=== PATIENT | female | born 1945 | race Caucasian/White ===

== ENCOUNTER 2018-03-10 10:50 | Emergency (ER) | payer MEDICARE ==
[~2018-03-10] VITALS: Ht 162.5 cm; Wt 59.0 kg
[~2018-03-10 10:50] MED LIST: ANTIVERT25 MG PO; ESTRADERM0.05 MG/24 PO; HYDROCODONE BIT1 T11 PO; PROVERA2.5 MG PO
[2018-03-10 11:20] LABS: BILIRUBIN NEGATIVE (NEGATIVE); BLOOD 3+ (NEGATIVE); CLARITY SL CLOUDY (CLEAR); COLOR YELLOW (YELLOW); GLUCOSE NEGATIVE (NEGATIVE); KETONE NEGATIVE (NEGATIVE); LEUKO ESTERASE 1+ (NEGATIVE); NITRITE NEGATIVE (NEGATIVE); SPECIFIC GRAVITY 1.025 (1.005-1.030)
[2018-03-10 11:29] LABS: BACTERIA 2+; RBC 51-100 rbc/hpf (0-2)
[2018-03-10 12:19] LABS: BASO % 0.7 % (0.0-1.0); EOS % 0.5 % (1.0-4.0); HEMOGLOBIN 13.7 g/dl (12.0-16.0); LYMPH % 16.9 % (27.0-41.0); MEAN CELL VOLUME 90.1 fl (81.0-99.0); MEAN CORPUSCULAR HGB 30.1 pg (27.0-31.0); MEAN CORPUSCULAR HGB CONC 33.4 g/dl (33.0-37.0); MEAN PLATELET VOLUME 9.1 fl (9.6-12.3); MONO # 0.8 10*3/uL (0.1-1.0); MONO % 13.7 % (3.0-9.0); NEUT # 3.8 10*3/uL (2.3-7.9); PLATELET COUNT AUTOMATED 240 10*3/uL (130-400); RED BLOOD COUNT 4.55 10*6/uL (4.10-5.10); RED CELL DISTRI WIDTH 12.9 % (0-14.5); WHITE BLOOD COUNT 5.6 10*3/uL (4.8-10.8)
[2018-03-10 12:43] LABS: ALBUMIN 3.8 gm/dl (3.1-4.5); ALKALINE PHOSPHATASE 98 U/L (45-117); BUN 11 mg/dl (7-24); CHLORIDE 107 mmol/L (98-107); CREATININE 0.96 mg/dL (0.55-1.02); SGOT/AST 30 IU/L (3-35); SGPT/ALT 32 U/L (12-78); SODIUM 139 mmol/L (136-145); TOTAL PROTEIN 7.2 gm/dL (6.4-8.2)
[2018-03-10] MEDS ORDERED: MACROBID100 M1 PO (13:10)
== END 2018-03-10 13:14 | disposition home or self-care (01) ==
LOC: ED 10:50
PROVIDERS: Emergency Medicine; Nurse Practitioner Family
DX: N39.0 Urinary tract infection, site not specified (principal); R51 Headache; Z79.899 Other long term (current) drug therapy

== ENCOUNTER 2018-03-12 08:38 | Emergency (ER) | payer MEDICARE ==
[~2018-03-12] VITALS: Ht 162.5 cm; Wt 59.0 kg
[~2018-03-12 08:38] MED LIST changes: +MACROBID100 M1 PO
[2018-03-12] MEDS ORDERED: NITROFURANTOIN PO (08:48)
[2018-03-12] MEDS ORDERED: PREDNISONE10 MG PO (09:09)
[2018-03-12] MEDS ORDERED: CLARITIN10 MG PO (09:09)
[2018-03-12] MEDS ORDERED: FLONASE ALLERG9.9 ML NAS (09:09)
[2018-03-12] MEDS ORDERED: Fioricet 325 MG1 TAB PO (09:10)
== END 2018-03-12 09:43 | disposition home or self-care (01) ==
LOC: ED 08:38
DX: R51 Headache (principal); H92.02 Otalgia, left ear; Z98.890 Other specified postprocedural states; Z79.899 Other long term (current) drug therapy

== ENCOUNTER 2018-03-26 10:31 | Emergency (ER) | payer MEDICARE ==
[~2018-03-26] VITALS: Ht 162.5 cm; Wt 59.0 kg
--- NOTE | ~2018-03-26 | EKG ---
[place], [place] ELECTROCARDIOGRAM REPORT NAME: IRIS KAPOOR UNIT #: [id number] ROOM: DOCTOR: MATTEOANY DRAFT REPORT BIRTHDATE: [birth year] [facility] Test Date: 2018-03-26 Test Time: 11:03:39 Pat Name: IRIS KAPOOR Department: Room: Gender: F Hearing Care Practitioner: PINKY PAYTON : 1945 Requested By: FAB ANDREWS Order Number: [id number] Reading MD: William Freeman MD Measurements Intervals [place] Rate: 82 P: 50 TN: 149 QRS: 33 QRSD: 94 T: QT: 513 QTc: 600 Interpretive Statements Sinus rhythm Abnormal inferior Q waves Borderline repolarization abnormality Prolonged QT interval Electronically Signed On 03-28-2018 8:20:37 PDT by William Freeman MD CM:EKGRPT:ELECTROCARDIOGRAM REPORT [id number] FAB DOLL DRAFT REPORT FAB ANDREWS MD
[~2018-03-26 10:31] MED LIST changes: +CLARITIN10 MG PO; +FLONASE ALLERG9.9 ML NAS; +Fioricet 325 MG1 TAB PO; +NITROFURANTOIN PO; +PREDNISONE10 MG PO
[2018-03-26 11:02] LABS: BASO # 0.1 10*3/uL (0.0-0.1); BASO % 0.8 % (0.0-1.0); EOS # 0.2 10*3/uL (0.0-0.4); EOS % 2.2 % (1.0-4.0); HEMATOCRIT 41.1 % (37.0-47.0); HEMOGLOBIN 13.3 g/dl (12.0-16.0); LYMPH # 1.8 10*3/uL (1.3-4.4); LYMPH % 20.5 % (27.0-41.0); MEAN CELL VOLUME 93.8 fl (81.0-99.0); MEAN CORPUSCULAR HGB 30.4 pg (27.0-31.0); MEAN CORPUSCULAR HGB CONC 32.4 g/dl (33.0-37.0); MEAN PLATELET VOLUME 8.8 fl (9.6-12.3); MONO # 0.7 10*3/uL (0.1-1.0); MONO % 7.8 % (3.0-9.0); NEUT # 6.1 10*3/uL (2.3-7.9); NEUT % 68.4 % (47.0-73.0); PLATELET COUNT AUTOMATED 372 10*3/uL (130-400); RED BLOOD COUNT 4.38 10*6/uL (4.10-5.10); RED CELL DISTRI WIDTH 13.4 % (0-14.5); WHITE BLOOD COUNT 8.9 10*3/uL (4.8-10.8)
[2018-03-26 11:18] LABS: ALBUMIN 3.5 gm/dl (3.1-4.5); ALKALINE PHOSPHATASE 93 U/L (45-117); BUN 17 mg/dl (7-24); CHLORIDE 108 mmol/L (98-107); CREATININE 0.89 mg/dL (0.55-1.02); POTASSIUM 4.6 mmol/L (3.5-5.1); SGOT/AST 14 IU/L (3-35); SGPT/ALT 27 U/L (12-78); SODIUM 141 mmol/L (136-145); TOTAL PROTEIN 7.3 gm/dL (6.4-8.2)
[2018-03-26 11:20] LABS: TROPONIN I < 0.015 ng/ml (<0.045)
== END 2018-03-26 12:00 | disposition short-term general hospital (02) ==
LOC: ED 10:31
PROVIDERS: Emergency Medicine
DX: R53.1 Weakness (principal); R47.81 Slurred speech; R20.0 Anesthesia of skin; R51 Headache; Z79.899 Other long term (current) drug therapy

== ENCOUNTER → 2018-05-04 | Outpatient (CLI) | payer MEDICARE | END | disposition home or self-care (01) | LOC: US 15:58 | DX: E05.90 Thyrotoxicosis, unspecified without thyrotoxic crisis or storm (principal) ==

== ENCOUNTER → 2018-11-21 | Outpatient (CLI) | payer MEDICARE ==
[~2018-11-21] MED LIST changes: +IBUPROFEN600 MG PO
== END | disposition home or self-care (01) ==
LOC: US 13:59
DX: M79.662 Pain in left lower leg (principal); R22.42 Localized swelling, mass and lump, left lower limb

== ENCOUNTER 2021-04-21 14:56 | Inpatient (IN) | payer MEDICARE ==
[~2021-04-21] VITALS: Wt 61.2 kg
[2021-04-21 15:28] VITALS: BP 181/74
[2021-04-21 18:44] LABS: BILIRUBIN Negative (Negative); BLOOD 2+ (Negative); CLARITY Clear (Clear); COLOR Yellow (Yellow); GLUCOSE Negative (Negative); KETONE Negative (Negative); LEUKO ESTERASE Negative (Negative); NITRITE Negative (Negative); SPECIFIC GRAVITY 1.015 (1.001-1.030); UROBILINOGEN 0.2 E.U./dl (0.0-1.0)
[2021-04-21 18:52] LABS: BACTERIA 1+; MUCOUS 1+; RBC 16-20 rbc/hpf (0-2)
[2021-04-21 18:53] LABS: BASO # 0.1 10*3/uL (0.0-0.1); EOS # 0.1 10*3/uL (0.0-0.4); EOS % 1.5 % (1.0-4.0); HEMATOCRIT 44.5 % (37.0-47.0); LYMPH # 2.9 10*3/uL (1.3-4.4); LYMPH % 30.2 % (27.0-41.0); MEAN CELL VOLUME 93.1 fl (81.0-99.0); MEAN CORPUSCULAR HGB 30.1 pg (27.0-31.0); MEAN CORPUSCULAR HGB CONC 32.4 g/dl (33.0-37.0); MEAN PLATELET VOLUME 9.1 fl (9.6-12.3); MONO # 0.7 10*3/uL (0.1-1.0); NEUT # 5.7 10*3/uL (2.3-7.9); NEUT % 60.1 % (47.0-73.0); PLATELET COUNT AUTOMATED 369 10*3/uL (130-400); RED BLOOD COUNT 4.78 10*6/uL (4.10-5.10); RED CELL DISTRI WIDTH 13.2 % (0-14.5); WHITE BLOOD COUNT 9.4 10*3/uL (4.8-10.8)
[2021-04-21 18:56] VITALS: BP 190/80
[2021-04-21 19:08] LABS: ALBUMIN 4.2 gm/dl (3.1-4.5); ALKALINE PHOSPHATASE 78 U/L (45-117); BUN 12 mg/dl (7-24); CHLORIDE 107 mmol/L (98-107); CREATININE 0.88 mg/dL (0.55-1.02); LIPASE 115 U/L (73-393); POTASSIUM 3.7 mmol/L (3.5-5.1); SGOT/AST 22 IU/L (3-35); SGPT/ALT 32 U/L (12-78); SODIUM 140 mmol/L (136-145); TOTAL PROTEIN 8.2 gm/dL (6.4-8.2)
[2021-04-21 19:10] LABS: TROPONIN I < 0.015 ng/ml (<0.045)
[2021-04-21 21:17] VITALS: BP 190/70; BP 1910/70
[2021-04-21 22:14] VITALS: BP 184/82
[2021-04-21 22:42] VITALS: BP 154/61
[2021-04-22] VITALS (8 sets, daily range): BP systolic 118–161; BP diastolic 40–80
[2021-04-22 04:42] LABS: BASO # 0.1 10*3/uL (0.0-0.1); BASO % 0.4 % (0.0-1.0); EOS % 0.2 % (1.0-4.0); HEMATOCRIT 42.6 % (37.0-47.0); LYMPH # 1.8 10*3/uL (1.3-4.4); LYMPH % 14.1 % (27.0-41.0); MEAN CELL VOLUME 91.8 fl (81.0-99.0); MEAN CORPUSCULAR HGB 30.2 pg (27.0-31.0); MEAN CORPUSCULAR HGB CONC 32.9 g/dl (33.0-37.0); MEAN PLATELET VOLUME 9.2 fl (9.6-12.3); MONO # 0.6 10*3/uL (0.1-1.0); MONO % 5.1 % (3.0-9.0); NEUT % 79.9 % (47.0-73.0); PLATELET COUNT AUTOMATED 397 10*3/uL (130-400); RED BLOOD COUNT 4.64 10*6/uL (4.10-5.10); RED CELL DISTRI WIDTH 13.2 % (0-14.5); WHITE BLOOD COUNT 12.5 10*3/uL (4.8-10.8)
[2021-04-22 04:57] LABS: ACT PARTIAL THROMBO TIME 28.1 SECONDS (20.0-32.1); INTERNATIONAL NORM RATIO 1.1 (2.0-3.5)
[2021-04-22 05:04] LABS: ALBUMIN 3.8 gm/dl (3.1-4.5); ALKALINE PHOSPHATASE 70 U/L (45-117); BUN 12 mg/dl (7-24); CHLORIDE 108 mmol/L (98-107); CHOLESTEROL 241 mg/dL (<200); CREATININE 0.81 mg/dL (0.55-1.02); LDL CHOLESTEROL 174 mg/dL (9-159); POTASSIUM 3.9 mmol/L (3.5-5.1); SGOT/AST 19 IU/L (3-35); SGPT/ALT 29 U/L (12-78); SODIUM 141 mmol/L (136-145); TOTAL PROTEIN 7.5 gm/dL (6.4-8.2); TRIGLYCERIDES 84 mg/dl (<150)
[2021-04-22 05:05] LABS: FREE T4 1.13 ng/dl (0.76-1.46)
[2021-04-22 09:09] LABS: VITAMIN D, 25-HYDROXY 33.3 ng/mL (30-100)
[2021-04-22] MEDS ORDERED: AMLODIPINE BESYL5 MG PO (12:05)
[2021-04-22] MEDS ORDERED: XARE20MG PO (12:05)
[2021-04-22] MEDS ORDERED: LISINOPRIL10 M1 PO (12:05)
[2021-04-22] MEDS ORDERED: VITAMIN B121000 MC1 PO (12:58)
== END 2021-04-22 12:31 | disposition home or self-care (01) | DRG 305 ==
LOC: ED 14:56 → EDHOLD 23:06
PROVIDERS: Emergency Medicine; Hospitalist; ADMIT Internal Medicine; ATTEND Internal Medicine
DX: I16.0 Hypertensive urgency (principal); E03.9 Hypothyroidism, unspecified; M17.0 Bilateral primary osteoarthritis of knee; E83.41 Hypermagnesemia; E53.8 Deficiency of other specified B group vitamins; I48.0 Paroxysmal atrial fibrillation; Z90.49 Acquired absence of other specified parts of digestive tract; Z86.73 Personal history of transient ischemic attack (TIA), and cerebral infarction without residual deficits; Z98.891 History of uterine scar from previous surgery; Z82.49 Family history of ischemic heart disease and other diseases of the circulatory system; Z79.1 Long term (current) use of non-steroidal anti-inflammatories (NSAID); Z79.899 Other long term (current) drug therapy

== ENCOUNTER 2024-03-18 19:18 | Emergency (ER) | payer MEDICARE ==
[~2024-03-18] VITALS: Ht 162.5 cm; Wt 60.8 kg
[~2024-03-18 19:18] MED LIST changes: +AMLODIPINE BESYL5 MG PO; +LISINOPRIL10 M1 PO; +VITAMIN B121000 MC1 PO; +XARE20MG PO
[2024-03-18] MEDS ORDERED: LEVOTHYROXINE50 MCG PO (19:27)
[2024-03-18] MEDS ORDERED: ZESTRIL20 MG PO (19:28)
[2024-03-18] MEDS ORDERED: SODIUM CHLORIDE 0.9% 1,000 ML IV ONE (19:50)
[2024-03-18 20:09] LABS: BASO # 0.1 10*3/uL (0.0-0.1); BASO % 0.7 % (0.0-1.0); EOS # 0.2 10*3/uL (0.0-0.4); EOS % 1.8 % (1.0-4.0); LYMPH # 2.4 10*3/uL (1.3-4.4); LYMPH % 21.7 % (27.0-41.0); MEAN CELL VOLUME 97.1 fl (81.0-99.0); MEAN CORPUSCULAR HGB 30.9 pg (27.0-31.0); MEAN CORPUSCULAR HGB CONC 31.9 g/dl (33.0-37.0); MEAN PLATELET VOLUME 9.2 fl (9.6-12.3); MONO # 0.8 10*3/uL (0.1-1.0); MONO % 7.1 % (3.0-9.0); NEUT # 7.6 10*3/uL (2.3-7.9); NEUT % 68.4 % (47.0-73.0); PLATELET COUNT AUTOMATED 347 10*3/uL (130-400); RED BLOOD COUNT 4.43 10*6/uL (4.10-5.10); RED CELL DISTRI WIDTH 12.8 % (0-14.5); WHITE BLOOD COUNT 11.2 10*3/uL (4.8-10.8)
[2024-03-18 20:33] LABS: POTASSIUM 4.3 mmol/L (3.4-5.1)
[2024-03-18 21:02] LABS: BILIRUBIN Negative (Negative); BLOOD Negative (Negative); CLARITY Cloudy (Clear); COLOR Dark Yellow (Yellow); GLUCOSE Negative (Negative); KETONE Trace (Negative); LEUKO ESTERASE 2+ (Negative); NITRITE Negative (Negative); SPECIFIC GRAVITY 1.025 (1.001-1.030)
[2024-03-18 21:10] LABS: BACTERIA 2+
[2024-03-19] MEDS ORDERED: AMOX-CLAV 875-1 EACH PO (00:12)
[2024-03-19] MEDS ORDERED: Amoxicillin/Clavulanate Pota 875 MG TAB PO ONE (00:15)
== END 2024-03-19 00:22 | disposition home or self-care (01) ==
LOC: ED 19:18
PROVIDERS: Emergency Medicine
DX: T67.9XXA Effect of heat and light, unspecified, initial encounter (principal); N39.0 Urinary tract infection, site not specified; E86.0 Dehydration; R42 Dizziness and giddiness; E83.41 Hypermagnesemia; Z86.73 Personal history of transient ischemic attack (TIA), and cerebral infarction without residual deficits; M19.90 Unspecified osteoarthritis, unspecified site; Z90.49 Acquired absence of other specified parts of digestive tract; Z90.89 Acquired absence of other organs; Z98.890 Other specified postprocedural states; Z87.442 Personal history of urinary calculi; T75.00XA Unspecified effects of lightning, initial encounter; Y93.89 Activity, other specified; Y92.511 Restaurant or cafe as the place of occurrence of the external cause; Y99.8 Other external cause status

== ENCOUNTER → 2024-11-21 | Outpatient (CLI) | payer MEDICARE ==
[~2024-11-21] MED LIST changes: +AMOX-CLAV 875-1 EACH PO; +LEVOTHYROXINE50 MCG PO; +ZESTRIL20 MG PO
[2024-11-21 15:17] LABS: POTASSIUM 4.4 mmol/L (3.4-5.1); TOTAL PROTEIN 7.2 gm/dL (6.0-8.0)
== END | disposition home or self-care (01) ==
LOC: LAB 14:31
PROVIDERS: ATTEND Orthopaedic Surgery
DX: M54.9 Dorsalgia, unspecified (principal)

== ENCOUNTER → 2024-12-20 | Outpatient (CLI) | payer MEDICARE ==
[2024-12-20 15:52] LABS: POTASSIUM 4.5 mmol/L (3.4-5.1); TOTAL PROTEIN 7.7 gm/dL (6.0-8.0)
== END | disposition home or self-care (01) ==
LOC: LAB 15:10
PROVIDERS: ATTEND Nurse Practitioner
DX: R79.89 Other specified abnormal findings of blood chemistry (principal)